=== PATIENT | male | born 1995 | race Caucasian/White ===

== ENCOUNTER 2017-05-15 23:38 | Emergency (ER) | payer BC, OTHER ==
[~2017-05-15] VITALS: Ht 177.8 cm; Wt 111.1 kg
[2017-05-16] MEDS ORDERED: RX-GENTAMICIN 0.3% OP OINT 3.5 GM TUBE OP STA (01:31)
--- NOTE | 2017-05-16 01:34 | ED EENT ---
History of Present Illness General Chief Complaint: Eye Problems Stated Complaint: L EYE INJ Nursing Triage Note: Pt c/o left eye pain after rubbing left eye at 2230. Pt states he feels like there is an eyelash under that left lower lid. Pt built a deck earlier today and reports he did not get anything in the eye at that time. Source: patient Exam Limitations: no limitations Allergies and Home Medications Allergies Uncoded Allergies: AMOXICILLIN (Adverse Reaction, Unknown, 05/16/17) Past Emgmwpl-Adnrro-Tvrudj Hx Patient Social History Alcohol Use: Denies Use Recreational Drug Use: No Smoking Status: Never a Smoker Recent Foreign Travel: No Contact w/Someone Who Travel: No Recent Infectious Disease Expo: No Recent Hopitalizations: No Seasonal Allergies Seasonal Allergies: Yes Physical Exam Vital Signs Vital Sign - Last 12Hours 05/16/17 00:24 Temp 97.4 Pulse 79 Resp 20 B/P (MAP) 158/94 Pulse Ox 98 O2 Delivery Room Air Progress/Results/Core Measures Results/Orders My Orders Orders - DANETTE HUGHES MD Rx-Gentamicin Ophth Oint (Rx-Gentamicin (05/16/17 01:31) Vital Signs/I&O Vital Sign - Last 12Hours 05/16/17 00:24 Temp 97.4 Pulse 79 Resp 20 B/P (MAP) 158/94 Pulse Ox 98 O2 Delivery Room Air Blood Pressure Mean: 115 Departure Impression Impression: Primary Impression: Conjunctivitis, left eye Qualified Codes: H10.32 - Unspecified acute conjunctivitis, left eye Disposition: 01 HOME, SELF-CARE Condition: Improved Departure-Patient Inst. Decision time for Depature: 01:33 Referrals: NO,LOCAL PHYSICIAN (PCP) Primary Care Physician Patient Instructions: Conjunctivitis ([place]key[place]) (DC) Add. Discharge Instructions: Use the antibiotic ointment by placing a half inch ribbon on the under portion of your lower eyelid 3 times daily for the next 3-5 days. If not improving by Wednesday, please follow-up with an eye doctor. Return to the ER symptoms worsen. You may use the saline drops provided to moisten your eye if necessary. All discharge instructions reviewed with patient and/or family. Voiced understanding. DANETTE HUGHES MD May 16, 2017 01:34
[2017-05-16 01:54] VITALS: BP 158/94
[2017-05-16] MEDS ORDERED: BSS 15 ML IR ONE (02:15)
[2017-05-16] MEDS ORDERED: FLUORESCEIN (FLUOR-I-STRIPS) 1 MG STRP OU ONE (02:15)
[2017-05-16] MEDS ORDERED: TETRACAINE 0.5% OPHTH SOLN 4 ML BTL (SINGLE DOSE ONLY) OP ONE (02:15)
== END 2017-05-16 01:54 | disposition home or self-care (01) ==
LOC: ER 23:43
DX: H10.9 Unspecified conjunctivitis (principal)
CPT/HCPCS: 99283